=== PATIENT | female | born 1975 | race Caucasian/White ===

== ENCOUNTER 2017-04-21 10:52 | Emergency (ER) | payer BC ==
[2017-04-21 11:29] VITALS: BP 113/77
--- NOTE | 2017-04-21 13:45 | UC ---
Abdominal Pain Female HPI - HPI Summary HPI Summary: pt presents with request to have Ct of abdomen at the recommendation of her PCP. Pt states that she has known gallstones and thinks she had three gallbladder "attacks over the weekend. Pt states that she had indigestion and "heartburn Like" symptoms on friday evening, Friday morning and yesterday. Pt reports that she had one episode of vomiting bile on 04/19/17 and one episode of soft stool this morning. Pt denies fever chills, current abdominl pain, history of diverticulosis, diverticulitis, IBS, Colitis, Colon cancer or any known GI disorders. Pt is sitting comfortably in no acute distress at time of examination. Pt's vital signs are stable at time of exam. - History of Current Complaint Chief Complaint: UCAbdominalPain Stated Complaint: ABD PAIN,NAUSEA,VOMIT/DIARRHEA Time Seen by Provider: 04/21/17 12:33 Hx Obtained From: Patient Hx Last Menstrual Period: 04/03/17 ?: No Onset/Duration: Sudden Onset Timing: Intermittent Episodes Lasting: Severity Initially: Moderate Severity Currently: None Pain Intensity: 2 Pain Scale Used: 0-10 Numeric Location: Other - epigastric, that wraps around to back. Radiates: Yes Radiates to: Back Character: Burning, Colicy, Dull Aggravating Factor(s): Nothing, Food - occasional Alleviating Factor(s): Nothing Associated Signs and Symptoms: Positive: Vomiting - X1 - Risk Factors Ectopic Risk Factor: Maternal Age ^ 30 Allergies/Adverse Reactions: Allergies Allergy/AdvReac Type Severity Reaction Status Date / Time Penicillins Allergy Intermediate SORES IN Verified 04/21/17 11:29 MOUTH Clarithromycin [From Biaxin] AdvReac Intermediate VOMITINTG Verified 04/21/17 11 :29 Home Medications: Home Medications Ascorbic Acid TAB* [Vitamin C TAB*] 500 mg PO DAILY 04/21/17 [History Confirmed 04/21/17] Digestive Enzymes [Digestive Enzyme] 1 cap PO DAILY 04/21/17 [History Confirmed 04/21/17] Glucosamine-Chondroitin [Glucosamine & Chondroitin 500-400 mg] 1 cap PO DAILY [History Confirmed 04/21/17] Lactobacillus [Probiotic] 1 tab PO DAILY 04/21/17 [History Confirmed 04/21/17] [place]-3 Fatty Acids (Nf) [Fish Oil (NF)] 1,000 mg PO DAILY 04/21/17 [History Confirmed 04/21/17] PMH/Surg Hx/FS Hx/Imm Hx Previously Healthy: Yes GI/ History: Other - gallstones - Surgical History Surgical History: Yes Surgery Procedure, Year, and Place: TONSILLECTOMY, C SECTION -2, ANKLE SURGERY, BREAST REDUCTION - Family History Known Family History: Negative: None, Unknown, Cardiac Disease, Hypertension, Diabetes, Renal Disease, Respiratory Disease, Seizure Disorder, Blood Disorder, Other - Social History Occupation: Employed Full-time Lives: With Family Alcohol Use: Occasionally Substance Use Type: None Smoking Status (MU): Never Smoked Tobacco Have You Smoked in the Last Year: No Review of Systems Constitutional: Negative Skin: Negative Eyes: Negative ENT: Negative Respiratory: Negative Cardiovascular: Negative Gastrointestinal: Abdominal Pain, Vomiting - x1 on 04/21/17 Genitourinary: Negative Motor: Negative Neurovascular: Negative Musculoskeletal: Negative Neurological: Negative Psychological: Negative All Other Systems Reviewed And Are Negative: Yes Physical Exam Triage Information Reviewed: Yes Appearance: Well-Appearing Vital Signs: Initial Vital Signs Temp 99.8 F 04/21/17 11:23 Pulse 62 04/21/17 11:23 Resp 16 04/21/17 11:23 BP 113/77 04/21/17 11:23 Pulse Ox 98 04/21/17 11:23 Vital Signs Reviewed: Yes Eye Exam: Normal ENT Exam: Normal Dental Exam: Normal Neck exam: Normal Respiratory Exam: Normal Cardiovascular Exam: Normal Abdominal Exam: Other Abdomen Description: Positive: Nontender, Other: - negative for palomino's sign, Musculoskeletal Exam: Normal Neurological Exam: Normal Psychological Exam: Normal Skin Exam: Normal Abd Pain Female Course/Dx - Course Course Of Treatment: I called N to discuss with the PCP the findings on PE today. I left a message with the triage nurse that the pt was not presenting in any acute distress and that a CT would not be ordered today as the PE did not reveal any indication to proceed with this teset. additionally, I explained to the pt that she needed to follow upw tih her pCP and that the current xstandard of care is to first evaluate the gallbladder with an ultrasound, with [facility] pt being NPO prior to testing. The pt was not in any acute distress during exam and I referred her back to her pCP for follow up. Pt verbalized understanding and agreed to plan of care. - Differential Dx/Diagnosis Differential Diagnosis: Constipation, Diverticulitis, Gall Bladder Disease Provider Diagnoses: abdominal pain. needs to follow up with PCP Discharge - Discharge Plan Condition: Stable Disposition: HOME Patient Education Materials: Abdominal Pain (ED) Referrals: Jennifer Clarke PA [Primary Care Provider] - If Needed Additional Instructions: Please follow up with your PCP as needed. To fuirhter evaluate your complaiont of abdominal pain and possible gallbladder disea it is appropriate to follow up with your pCPO to have the appropriate testing ordered to render the best clinical outcome. If you experience worsening of your condition please seek care immediately at the closest healthcare facility.
== END 2017-04-21 13:33 | disposition home or self-care (01) ==
LOC: UCCORT 10:52
DX: R10.13 Epigastric pain (principal); R11.10 Vomiting, unspecified; Z32.02 Encounter for pregnancy test, result negative; K80.20 Calculus of gallbladder without cholecystitis without obstruction; Z88.1 Allergy status to other antibiotic agents; Z88.0 Allergy status to penicillin
CPT/HCPCS: 81003; 84702; 99211; G0463

== ENCOUNTER 2018-10-01 08:51 | Day surgery (SDC) | payer BC, OTHER ==
[~2018-10-01 08:51] MED LIST: Buffered Lidocaine 1% SYRIN* 1 ML/SYRINGE INTRADERM ONE; Dexamethasone IV* 4 MG/ML 1 ML (4 MG) IV SLOW PU ONE; Famotidine IV* 10 MG/ML 2 ML (20 mg) IV ONE; Lactated Ringers 1000 ML Bag* 1,000 ML IV SCH
[2018-10-01] MEDS ORDERED: Dexamethasone IV* 4 MG/ML 1 ML (4 MG) ONE (09:00)
[2018-10-01] MEDS ORDERED: Clindamycin 900 MG/D5W BAG(*) 900 MG/50 ML BAG IVPB ONE (09:00)
[2018-10-01] MEDS ORDERED: Famotidine IV* 10 MG/ML 2 ML (20 mg) ONE (09:01)
[2018-10-01] MEDS ORDERED: Midazolam* 1 MG/ML 5 ML VIAL (5 MG) ONE (09:47)
[2018-10-01] MEDS ORDERED: fentaNYL* 50 MCG/ML 2 ML VIAL (100 MCG VIAL) ONE ×2 (09:47→12:39)
[2018-10-01] MEDS ORDERED: Atracurium* 10 MG/ML 10 ML VIAL ONE (09:47)
[2018-10-01] MEDS ORDERED: Ondansetron INJ* 2 MG/ML VIAL ONE ×2 (09:48→13:32)
[2018-10-01] MEDS ORDERED: Propofol* 10 MG/ML 20 ML BTL ONE (09:48)
[2018-10-01] MEDS ORDERED: Lidocaine 2% PF * 5 ML VIAL ONE (09:48)
[2018-10-01] MEDS ORDERED: Phenylephrine INJ* 10 MG/ML 1 ML VIAL (10 MG) ONE (10:00)
[2018-10-01] MEDS ORDERED: ROPIVACAINE 5 MG/ML 30 ML BTL (0.5%) ONE (10:06)
[2018-10-01] MEDS ORDERED: Bupivacaine 0.25% EPI 200,000* 30 ML SDV ONE (11:09)
[2018-10-01] MEDS ORDERED: oxyCODONE/Acetamin 5/325 MG* TAB PO PRN (11:37)
[2018-10-01] MEDS ORDERED: Naloxone* 0.4 MG/ML 1 ML VIAL IV PRN (11:37)
[2018-10-01] MEDS ORDERED: Scopolamine 1.5 mg* PATCH TRANSDERM PRN (11:37)
[2018-10-01] MEDS ORDERED: DiMENhydriNATE IV* 50 MG/ML VIAL IV PUSH PRN (11:37)
[2018-10-01] MEDS ORDERED: fentaNYL* 50 MCG/ML 2 ML VIAL (100 MCG VIAL) IV PRN (11:37)
[2018-10-01] MEDS ORDERED: HYDROmorphone INJ1* 1 MG/ML SYRINGE IV PRN (11:37)
[2018-10-01] MEDS ORDERED: Ondansetron INJ* 2 MG/ML VIAL IV PRN (11:37)
[2018-10-01] MEDS ORDERED: Scopolamine 1.5 mg* PATCH ONE (13:44)
[2018-10-01 14:30] VITALS: BP 104/74
--- NOTE | 2018-10-01 21:00 | OP ---
DATE OF OPERATION: 10/01/18 - [facility] DATE OF : 79 SURGEON: Gilberto Parada MD. RESOLUTION EXPERT: GENO Irizarry. An respiratory therapist assistant was needed for the procedure to aid in passing the instruments on to the joint and for arthroscopic assistance as well as retraction during the open portion of the procedure. ANESTHESIOLOGIST: Dr. Mcintosh. ANESTHESIA: Peripheral nerve block plus general. PRE-OP DIAGNOSES: 1. Left shoulder bicipital tendonitis. 2. Left shoulder impingement syndrome. 3. Left shoulder acromioclavicular degenerative joint disease. 4. Left shoulder flap tear. POST-OP DIAGNOSES: 1. Left shoulder bicipital tendonitis. 2. Left shoulder impingement syndrome. 3. Left shoulder acromioclavicular degenerative joint disease. 4. Left shoulder flap tear. OPERATIVE PROCEDURES: 1. Diagnostic left shoulder arthroscopy. 2. Left shoulder arthroscopic debridement with subacromial decompression and acromioplasty. 3. Left shoulder biceps tenotomy with subpectoral biceps tenodesis. 4. Left shoulder open distal clavicle excision. 5. Left shoulder flap tear debridement. INDICATIONS: Tatianna has had a left shoulder pain for a long time. It has failed to get better despite extensive nonoperative treatment. We talked about risks and benefits. She wanted to proceed with surgery. ESTIMATED BLOOD LOSS: 20 mL. COMPLICATIONS: None. FINDINGS: See above and below. DESCRIPTION OF PROCEDURE: Tatianna was seen in the preoperative holding area. The correct site, side, and procedure were identified. The block was performed in the arm. She was brought back to the operating room. Anesthesia was induced. She was positioned in the beach chair position with the head and neck well positioned and the left shoulder free. The arm was then prescrubbed and then prepped and draped in the usual fashion. A time out was performed. I infiltrated 0.25% Marcaine with epinephrine at the portal sites and in the subacromial space. I first developed a posterior portal in a typical location. The trochar was introduced into the glenohumeral joint. I then developed an anterior portal using outside in technique with the spinal needle followed by the switching stick and then the Valverde and Nephew port was introduced. I brought in the probe and performed a diagnostic shoulder arthroscopy, what was seen was a lipstick sign on the biceps long and biceps tendon coupled with a type 2 flap tear. The biceps tenotomy was performed with a biter. The flap tear was then debrided, first with the shaver and then followed by the radiofrequency ablator. The remainder of shoulder arthroscopy revealed good glenohumeral cartilage surfaces. The rotator cuff appear to be intact as to the inferior portions of the labrum. Once I completed the flap tear debridement, I withdrew the arthroscope out of the glenohumeral joint and moved it into the subacromial space. A lateral portal was developed and the radiofrequency ablator was introduced. The subacromial bursectomy was performed. Once I outlined the margins of the inferior aspect of the acromion, I used a linnette to perform an acromioplasty to complete subacromial decompression. The acromioplasty was smoothed off with the rasp. At this point, everything was looking good, so the arthroscopic equipment was all withdrawn and we transitioned to the open portion of the procedure. I made a 2 to 3 cm incision over the AC joint. Dissection was carried down. The superior acromioclavicular ligaments were split in line with the clavicle and the distal clavicle was exposed, couple of baby Hohmanns were placed around the end of the distal clavicle. I then used a sagittal saw to excise the distal 1 cm of clavicle, this came out cleanly. I placed bone wax over the distal end of the clavicle. I irrigated out the wound. The superior AC ligaments were closed with 3-0 Vicryl. The subcutaneous tissue was reapproximated with 3-0 Vicryl and the skin was closed with 4-0 nylon. Lastly, I made a 3 to 4 cm longitudinal incision near the axillary fold over the distal aspect of the deltopectoral groove, dissection was carried down. The deltopectoral groove was identified. A couple of Hohmann retractors were placed. Bicipital groove was located. The long head of the biceps tendon was retrieved. The bed of the distal aspect of the bicipital groove was prepared and then I placed a Valverde and Nephew All-Suture suture anchor into the appropriate location. Three needles were used to whipstitch into the long head of the biceps tendon and sew this back down to the bone. Once I had sewed this tendon with both of the sutures to come with the suture anchor, we irrigated out the wound. The subcutaneous tissue was closed, was reapproximated with 3-0 Vicryl suture. Skin was closed with 3-0 nylon suture. All the portal sites were irrigated out and closed with 3-0 nylon suture. Marcaine was infiltrated around the operative areas. Dressings were applied and she was woken up and taken to recovery room in stable condition. [id number]/[facility] #: [id number] [facility] HOSPITALJerry
== END 2018-10-01 14:24 | disposition home or self-care (01) ==
LOC: OREAST 08:51
PROVIDERS: ATTEND Orthopaedic Surgery Hand Surgery
DX: M75.42 Impingement syndrome of left shoulder (principal); M75.22 Bicipital tendinitis, left shoulder; M19.012 Primary osteoarthritis, left shoulder; M24.112 Other articular cartilage disorders, left shoulder; G89.18 Other acute postprocedural pain
CPT/HCPCS: 81025; 88304; A9270-GY; C1776; J1100; J2250; J2405; J2704; J2795; J3010

== ENCOUNTER 2018-10-21 12:31 | Day surgery (SDC) | payer OTHER ==
[2018-10-21] MEDS ORDERED: Famotidine IV* 10 MG/ML 2 ML (20 mg) ONE (13:21)
[2018-10-21] MEDS ORDERED: Clindamycin 900 MG/D5W BAG(*) 900 MG/50 ML BAG IVPB ONE (13:21)
[2018-10-21] MEDS ORDERED: Dexamethasone IV* 4 MG/ML 1 ML (4 MG) ONE (13:21)
[2018-10-21] MEDS ORDERED: fentaNYL* 50 MCG/ML 2 ML VIAL (100 MCG VIAL) ONE ×2 (14:36→15:32)
[2018-10-21] MEDS ORDERED: Atracurium* 10 MG/ML 10 ML VIAL ONE (14:36)
[2018-10-21] MEDS ORDERED: Midazolam* 1 MG/ML 5 ML VIAL (5 MG) ONE (14:37)
[2018-10-21] MEDS ORDERED: Propofol* 10 MG/ML 20 ML BTL ONE (15:35)
[2018-10-21] MEDS ORDERED: Ketorolac INJ* 30 MG/ML 1 ML VIAL ONE (15:35)
[2018-10-21] MEDS ORDERED: Lidocaine 2% PF * 5 ML VIAL ONE (15:36)
[2018-10-21] MEDS ORDERED: fentaNYL* 50 MCG/ML 2 ML VIAL (100 MCG VIAL) IV PRN (15:38)
[2018-10-21] MEDS ORDERED: Naloxone* 0.4 MG/ML 1 ML VIAL IV PRN (15:38)
[2018-10-21] MEDS ORDERED: DiMENhydriNATE IV* 50 MG/ML VIAL IV PUSH PRN (15:38)
[2018-10-21] MEDS ORDERED: Morphine VIAL* 4 MG/ML VIAL (1 ml vial) IV PRN (15:38)
[2018-10-21] MEDS ORDERED: Vancomycin(*) 1,000 MG in NS 0.9% 250 ML* 250 ML IVPB ONE (16:00)
[2018-10-21] MEDS ORDERED: oxyCODONE/Acetamin 5/325 MG* TAB ONE ×2 (16:32→17:27)
[2018-10-21] MEDS: oxyCODONE/Acetamin 5/325 MG* TAB PO PRN ×2 (16:33→17:28)
[2018-10-21] MEDS ORDERED: DiMENhydriNATE IV* 50 MG/ML VIAL ONE (16:34)
[2018-10-21 18:17] VITALS: BP 120/64
--- NOTE | 2018-10-21 20:52 | OP ---
DATE OF OPERATION: 10/21/18 - [facility] DATE OF : 79 SURGEON: Gilberto Parada MD. APARTMENT GROUNDSKEEPER: GENO Ralph. ANESTHESIOLOGIST: Dr. Medina. ANESTHESIA: General. PRE-OP DIAGNOSIS: Left shoulder postoperative subpectoral biceps tendinosis wound infection. POST-OP DIAGNOSIS: Left shoulder postoperative subpectoral biceps tendinosis wound infection. OPERATIVE PROCEDURE: Irrigation and debridement of left shoulder subpectoral biceps tendinosis wound infection. INDICATIONS: We did the shoulder scope about 2-1/2 to 3 weeks ago. There is no evidence of any intraarticular infection. She developed a cellulitis around the subpectoral biceps tendinosis wound. I initially treated it with some Bactrim and it has improved, but then when I saw her in the office, she had a little bit of purulent drainage from the inferior aspect of the wound, so I told her I wanted to wash out the wound and that should help to make it better quicker and I think that is the right course of treatment. ESTIMATED BLOOD LOSS: 10 mL. COMPLICATIONS: None. FINDINGS: See above and below. DESCRIPTION OF PROCEDURE: Tatianna was seen in the preoperative holding area. The correct side, site, and procedure were identified. We came back to the operating room where she was positioned in the lazy beach chair position on the operating room bed and the arm was prepped and draped with a Betadine prep and then a time-out was performed. I used the Metzenbaum scissors to spread and open up her subpectoral biceps tendinosis wound. There was some purulence. We took aerobic and anaerobic cultures. We then irrigated out the wound. It did not look like it tracked deep, but I went ahead and just bluntly spread down with my finger just to make sure we irrigated out the wound to its entire depth. We put 6 L of saline through the wound and at that point everything was looking nice and clean. There was no subcutaneous tracking. There was no additional purulence that was not addressed. I went ahead and placed 3 simple interrupted 3-0 nylon sutures to loosely approximate the wound. The wound was dressed with Xeroform, 4x4s and foam tape. She was then woken up and taken to the recovery room in stable condition. [id number]/[facility] #: [id number] [facility]
== END 2018-10-21 18:19 | disposition home or self-care (01) ==
LOC: OR 12:31
PROVIDERS: ATTEND Orthopaedic Surgery Hand Surgery
DX: T81.49XA Infection following a procedure, other surgical site, initial encounter (principal); S46.112D Strain of muscle, fascia and tendon of long head of biceps, left arm, subsequent encounter; M19.012 Primary osteoarthritis, left shoulder; M75.42 Impingement syndrome of left shoulder; E06.3 Autoimmune thyroiditis; Z88.0 Allergy status to penicillin; Z88.8 Allergy status to other drugs, medicaments and biological substances; X58.XXXD Exposure to other specified factors, subsequent encounter
CPT/HCPCS: 81025; 87070; 87073; 87077; 87186; 87205; A9270-GY; J1100; J1240; J1885; J2250; J2704; J3010; J3370

== ENCOUNTER 2019-01-18 09:42 | Inpatient (IN) | payer OTHER ==
[2019-01-18] MEDS ORDERED: Clindamycin 900 MG IVPREMIX(* 900 MG/50 ML SDV IV ONE (09:55)
[2019-01-18] MEDS ORDERED: Dexamethasone IV* 4 MG/ML 1 ML (4 MG) ONE (09:55)
[2019-01-18] MEDS ORDERED: Famotidine IV* 10 MG/ML 2 ML (20 mg) ONE (09:55)
[2019-01-18] MEDS ORDERED: Naloxone* 0.4 MG/ML 1 ML VIAL IV PRN ×2 (11:42→11:43)
[2019-01-18] MEDS ORDERED: DiMENhydriNATE IV* 50 MG/ML VIAL IV PUSH PRN (11:43)
[2019-01-18] MEDS ORDERED: Midazolam* 1 MG/ML 2 ML VIAL (2 MG) ONE (11:56)
[2019-01-18] MEDS ORDERED: fentaNYL* 50 MCG/ML 2 ML VIAL (100 MCG VIAL) ONE ×3 (11:56→14:08)
[2019-01-18] MEDS ORDERED: Propofol* 10 MG/ML 20 ML BTL ONE (11:57)
[2019-01-18] MEDS ORDERED: Lidocaine 2% PF * 5 ML VIAL ONE (11:57)
[2019-01-18] MEDS ORDERED: Lidocain 1% EPI 1:100,000 * 30 ML MDV ONE (12:07)
[2019-01-18] MEDS ORDERED: Bupivacaine 0.25% SDV PF* 10 ML VIAL INJ ONE (12:07)
[2019-01-18] MEDS ORDERED: Ketorolac INJ* 30 MG/ML 1 ML VIAL ONE (12:47)
[2019-01-18] MEDS ORDERED: Ondansetron INJ* 2 MG/ML VIAL ONE (12:47)
[2019-01-18] MEDS ORDERED: Phenylephrine 40 MCG/ML SYRINGE ONE (12:47)
[2019-01-18] MEDS ORDERED: EPHEDrine (Pressors)* 50 MG/ML VIAL ONE (12:52)
[2019-01-18] MEDS ORDERED: HYDROmorphone INJ1* 1 MG/ML SYRINGE IV PRN (14:06)
[2019-01-18] MEDS ORDERED: Ondansetron INJ* 2 MG/ML VIAL IV PRN (14:07)
[2019-01-18] MEDS ORDERED: Morphine 4 MG/ML VIAL (1 ml) 4 MG/ML VIAL IV PRN (14:07)
[2019-01-18] MEDS ORDERED: Magnesium Hydroxide LIQ* 30 ML UDC PO PRN (14:07)
[2019-01-18] MEDS ORDERED: traMADol TAB* 50 MG PO PRN (14:07)
[2019-01-18] MEDS ORDERED: diPHENhydraMINE PO* 25 MG PO PRN (14:07)
[2019-01-18] MEDS ORDERED: diPHENhydraMINE IV* 50 MG/ML 1 ml VIAL (BENADRYL) IV PRN (14:07)
[2019-01-18] MEDS: fentaNYL* 50 MCG/ML 2 ML VIAL (100 MCG VIAL) IV PRN ×2 (14:09→14:25)
[2019-01-18] MEDS ORDERED: HYDROmorphone INJ1* 1 MG/ML SYRINGE ONE (14:30)
[2019-01-18] MEDS ORDERED: ceFAZolin VIAL(*) 2 GM in NS 0.9% 100 ML* 100 ML IVPB SCH (15:00)
[2019-01-18] MEDS: Lactated Ringers 1000 ML Bag* 1,000 ML IV SCH (15:29)
[2019-01-18] MEDS: Acetaminophen TAB* 325 MG PO SCH (16:25)
[2019-01-18] MEDS: Docusate CAP* 100 MG PO SCH (19:45)
[2019-01-18] MEDS: ceFAZolin* 2 GM* Q8H (Duplex) IVPB SCH (19:46)
[2019-01-18] MEDS: Magnesium Hydroxide LIQ* 30 ML UDC PO SCH (19:47)
--- NOTE | 2019-01-18 23:25 | OP ---
DATE OF OPERATION: 01/18/19 - ROOM #[id number] DATE OF : 79 SURGEON: Gilberto Parada MD CLAIMS INVESTIGATOR: GENO Irizarry. An recreational assistant was needed for the procedure to aid in positioning of the arm and retraction. ANESTHESIOLOGIST: Dr. Lunsford. ANESTHESIA: General. PRE-OP DIAGNOSIS: Left shoulder postoperative wound infection with likely infected suture anchor. POST-OP DIAGNOSIS: Left shoulder postoperative wound infection with infected suture anchor. OPERATIVE PROCEDURE: 1. Left shoulder wound irrigation and debridement with excision of sinus tract down to bone. 2. Removal of infected left shoulder Valverde and Nephew suture anchor. INDICATIONS: Tatianna has the aforementioned infection. Two weeks out from surgery, she had an infection which was treated with the wound washout and antibiotics and got completely better. Two months later, the infection came back. She now presents for I and D and removal of the suture anchors. I think it is likely infected. ESTIMATED BLOOD LOSS: 25 mL. COMPLICATIONS: None. FINDINGS: See above and below. DESCRIPTION OF PROCEDURE: Tatianna was seen in the preoperative holding area. The correct side, site, and procedure were identified. We came back to the operating room and the arm was prepped and draped in usual fashion. Time-out was performed. She was positioned in the lazy beach chair position. I began by ellipsing out the prior wound including an area of granulation tissue that had come out from the distal aspect of the wound where I had done her I and D. I immediately encountered with the sinus tract, this was traced deeply all the way down to bone. Once I got down to bone, I excised the entirety of the tract. I placed a couple of Hohmann retractors. The tract took us all the way down to the Valverde and Nephew Q-FIX suture anchor which there was a just a little bit of pus coming out around the anchor. I went ahead and pulled on the anchor and it came out in one piece. I released the suture on the anchor just pulled out from tissue that was in. I went ahead and cleaned up all of that tissue and made sure that there was absolutely no retained suture or any foreign material. Once everything was nice and clean, we irrigated out the wound copiously. I went ahead and placed the Hemovac drain deeply and brought this out laterally staying away from the axillary nerve. The wound was closed loosely with 3-0 nylon sutures. The wound was dressed. Hemovac was all set up and she was woken up and taken to the recovery room in stable condition. [id number]/[facility] #: [id number] MACKENZIE
[2019-01-19] MEDS: Acetaminophen TAB* 325 MG PO SCH ×4 (00:23→23:47)
[2019-01-19] MEDS: ceFAZolin* 2 GM* Q8H (Duplex) IVPB SCH ×3 (03:39→19:48)
[2019-01-19] MEDS: Lactated Ringers 1000 ML Bag* 1,000 ML IV SCH (06:00)
[2019-01-19] MEDS: Aspirin TAB* 325 MG PO SCH (07:39)
[2019-01-19] MEDS: Docusate CAP* 100 MG PO SCH ×2 (07:39→20:02)
[2019-01-19] MEDS: Magnesium Hydroxide LIQ* 30 ML UDC PO SCH ×2 (07:42→20:02)
[2019-01-19 14:44] LABS: ABS Basophils 0.1 10^3/ul (0-0.2); ABS Eosinophils 0.2 10^3/ul (0-0.6); ABS Neutrophils 5.3 10^3/ul (1.5-7.7); Eosinophil % 1.5 %; Hematocrit 35 % (35-47); Hemoglobin 12.3 g/dL (12.0-16.0); Lymphocyte % 37.9 %; Mean Corpuscular HGB Conc 35 g/dL (31-36); Mean Corpuscular Hemoglobin 33 pg (27-31); Mean Corpuscular Volume 94 fL (80-97); Nucleated Red Blood Cells % 0.1; Platelet Count 258 10^3/uL (150-450); Red Blood Count 3.77 10^6 /uL (3.70-4.87); Red Cell Distribution Width 13 % (10.5-15); White Blood Count 10.4 10^3/uL (3.5-10.8)
[2019-01-19 15:07] LABS: Calcium 8.6 mg/dL (8.6-10.3); Potassium 3.9 mmol/L (3.5-5.0)
[2019-01-19 15:12] LABS: BUN/Creatinine Ratio 15.9 (8-20); EGFR African American 68.4 (>60); EGFR Non-African American 56.5 (>60)
--- NOTE | 2019-01-19 16:17 | PN ---
Progress Note - Progress Note Date of Service: 01/19/19 SOAP: Subjective: [Pt was seen today sitting up in bed. She states that she is doing well. She states pain is well controlled. She denies any numbness, tingling, fevers, chills or night sweats. ] Objective: [General: Pt is alert and oriented x 3. Appropriate mood, affect, dress and hygiene. MSK, JEFRYE: Dressing is c/d/i. Minimal drainage in the wound vac. Wound vac pulled today. Able to move elbow and wrist without pain. Sensation intact to light touch. 2+ DP pulse. ] Vital Signs Temp 98.6 F 01/19/19 11:33 Pulse 61 01/19/19 11:33 Resp 16 01/19/19 11:33 BP 93/53 01/19/19 11:33 Pulse Ox 94 01/19/19 11:33 Intake & Output 01/18/19 01/19/19 01/19/19 18:59 06:59 18:59 Intake Total 1425 1735 1330 Output Total 368 010 9088 Balance 1225 1035 -370 Weight 155 lb Intake: IV Fluids 1350 1045 CLINDAMYCIN 900MG/ 50ml 50 LR 1300 990 cefazolin 55 Oral 75 690 1330 Output: Urine 961 190 2154 Other: # Bowel Movements 0 Assessment: [S/P Left shoulder removal of infected suture anchor. ] Plan: [- Continue with Ancef for current abx. - ID to consult, will await for their opinion - Drain removed today]
[2019-01-19 16:45] LABS: C Reactive Protein 2.9 mg/L (<8.01)
--- NOTE | 2019-01-19 18:01 | CONS ---
CONSULTATION REPORT: DATE OF CONSULTATION: 01/19/19 REQUESTING PHYSICIAN: Dr. Parada. CONSULTING SERVICE: Infectious Disease. REASON FOR CONSULTATION: Recurrence of left arm infection. IMPRESSION: 1. Left proximal arm abscess due to methicillin-sensitive Staph aureus with sinus tract down to suture anchor in the proximal humerus, which was removed and has been treated with incision and debridement and Ancef. 2. PENICILLIN allergy which caused mouth ulcers, but she is tolerating cephalosporins. 3. Left shoulder arthroscopy, subacromial decompression, biceps tenotomy, distal clavicle excision on 10/01/18, complicated by staph superficial infection and then irrigation and debridement left shoulder subpectoral biceps tendinosis wound on 10/21/18. RECOMMENDATIONS: Agree with Ancef 2 g every 8 hours here given very small focus of infection as well as her underlying normal immune status that prolonged course of oral antibiotics after initial IV therapy will sterilize the area. We will plan on Keflex 500 mg by mouth 3 times a day for a month after she is discharged. We will follow her arm and C-reactive protein from time to time. HISTORY OF PRESENT ILLNESS: This is a 43-year-old woman who had left biceps tendon repair in September. She developed some soft tissue infection, treated with Keflex initially with improvement and had recurrence, though she had incision and debridement in October. She had recurrence of her symptoms of left arm redness, pain, and swelling around [facility]. She was treated with clindamycin and Keflex with some improvement. After finishing it, the symptoms recurred again. She was put on Bactrim last week and then Dr. Parada admitted her to the hospital yesterday for washout, which she tolerated well. He found a small sinus tract down to the suture anchor and the bone, that was removed and washed out. Cultures have come back growing staph aureus, which by PCR is methicillin sensitive. She has not had other staph infections over the years. She has not had much in the way of fevers or chills recently and otherwise has been healthy. PAST MEDICAL HISTORY: Left shoulder bicipital tendonitis and shoulder flap tear , treated with arthroscopic debridement, decompression, acromioplasty, and biceps tenotomy. Distal clavicle excision in 10/01/18, complicated by staphylococcal infection, treated with incision and debridement on 10/21/18. MEDICATIONS: 1. Tylenol. 2. Aspirin. 3. Cefazolin 2 g every 8 hours. 4. Docusate. 5. Lactated Ringer's. 6. Magnesium hydroxide. 7. Zofran. 8. Tramadol as needed. ALLERGIES: CLARITHROMYCIN caused vomiting. DOXYCYCLINE caused headache. PENICILLIN caused mouth ulcers. FAMILY HISTORY: No recurrent infections. SOCIAL HISTORY: She lives at home with her . She is a nonsmoker. REVIEW OF SYSTEMS: All negative except as noted above to a 14-point review of systems. PHYSICAL EXAM: Vital Signs: Temperature 37, heart rate 60, respiratory rate 16 , blood pressure 103/60, oxygen saturation 97% on room air. In general, she is awake, not in distress. Neurologic: She is oriented x3. Follows commands. HEENT: There is no conjunctival hemorrhage. Oropharynx without lesions. Neck : Neck is supple without mass. Heart has regular rate and rhythm without murmurs, rubs, or gallops. Lungs are clear to auscultation bilaterally. Abdomen: Soft, nontender, and nondistended. There are bowel sounds present. Skin: There is no rash or splinter hemorrhage. Musculoskeletal: There is no spine tenderness to palpation. Left proximal arm bandage. There is no proximal or distal erythema, tenderness or crepitus. LABORATORY DATA: White blood cell count 10, hemoglobin 12, platelets 258. Creatinine 1. Please see impression and recommendations outlined above. Thanks for asking me to see Ms. Lopez in consultation. [id number]/[facility] #: [id number] MTDD
[2019-01-20] MEDS: ceFAZolin* 2 GM* Q8H (Duplex) IVPB SCH ×2 (03:50→12:18)
[2019-01-20] MEDS: Magnesium Hydroxide LIQ* 30 ML UDC PO SCH (07:50)
--- NOTE | 2019-01-20 08:21 | PN ---
Progress Note - Progress Note Date of Service: 01/20/19 SOAP: Subjective: [] Objective: [] Assessment: []L proximal arm abscess with sinus tract down to suture anchor SP removal of suture anchor and I&D Plan: []Ancef while in house then transition to keflex 500 mg TID x 1 month with monitoring of surgical site and CRP
[2019-01-20] MEDS: Acetaminophen TAB* 325 MG PO SCH (09:05)
[2019-01-20] MEDS: Docusate CAP* 100 MG PO SCH (09:06)
[2019-01-20] MEDS: Aspirin TAB* 325 MG PO SCH (09:06)
--- NOTE | 2019-01-20 10:02 | PN ---
Progress Note - Progress Note Date of Service: 01/20/19 SOAP: Subjective: CC: Recurrence of left arm infection HPI: Ms. Lopez is a 43 yo female with PMH significant for left shoulder bicipital tendonitis and shoulder flap tear s/p arthroscopic debridement, decompression, acromioplasty, and biscept tenotomy; and distal clavicle excision on 10/01/18, complicated by a staphylococcal infection s/p I+D 10/21/18. Denies fever, chills , shortness of breath, chest discomfort, N/V/D. Reports that pain is well controlled. Objective: Vital Signs - 8 hr 01/20/19 01/20/19 01/20/19 03:37 03:42 07:15 Temperature 98.6 F 98.3 F Pulse Rate 62 58 Respiratory 16 14 Rate Blood Pressure 85/52 98/50 106/53 (mmHg) O2 Sat by Pulse 97 96 Oximetry Physical Exam: General: NAD, sitting up in bed Neurological: Alert and Oriented x 4 HEENT: No thrush, moist MM Cardiovascular: Heart rate regular Respiratory: Lung sounds clear Abdominal: Bowel sounds present; ABD soft, non tender and non distended Skin: Left upper arm dressing clean, dry and intact Laboratory Results - last 24 hr 01/19/19 01/19/19 14:34 14:34 WBC 10.4 RBC 3.77 Hgb 12.3 Hct 35 MCV 94 MCH 33 H MCHC 35 RDW 13 Plt Count 258 MPV 7.0 L Neut % (Auto) 50.9 Lymph % (Auto) 37.9 [place] % (Auto) 9.2 Eos % (Auto) 1.5 Baso % (Auto) 0.5 Absolute Neuts (auto) 5.3 Absolute Lymphs (auto) 4.0 Absolute Monos (auto) 1.0 H Absolute Eos (auto) 0.2 Absolute Basos (auto) 0.1 Absolute Nucleated RBC 0.0 Nucleated RBC % 0.1 Sodium 140 Potassium 3.9 Chloride 108 Carbon Dioxide 27 Anion Gap 5 BUN 17 Creatinine 1.07 H Est GFR ( Amer) 68.4 Est GFR (Non-Af Amer) 56.5 BUN/Creatinine Ratio 15.9 Glucose 96 Calcium 8.6 C-Reactive Protein 2.90 Microbiology 01/18/19 13:40 Wound Gram Stain - Final Wound Tissue Culture - Preliminary Staphylococcus Aureus Anaerobic Culture - Preliminary Skin and Soft Tissue MRSA/MSSA (PCR - Final Mrsa Negative S.aureus Positive 01/18/19 13:20 Anaerobic Culture - Preliminary Wound No Growth Day 2 Gram Stain - Final Wound Culture - Preliminary No Growth Day 2 Assessment: 1. Left proximal arm abscess d/t MSSA with sinus tract down to suture anchor in the proximal humerus. S/P removal of suture anchor and I+D on 01/18/[address] Parada. 2. PCN allergy. Caused mouth ulcers, tolerated cephalosporins. Plan: Continue Ancef 2 g IV every 8 hours while in the hospital. Once ready for discharge, change to cephalexin 500 mg TID for 4 weeks. Can follow up with ID outpatient in 2-3 weeks after discharge.
[2019-01-20 11:38] VITALS: BP 117/62
--- NOTE | 2019-01-20 12:18 | DS ---
Orthopedic Discharge Summary - Discharge Summary Date of Admission:01/18/19 Date of Discharge: 01/20/19 Date of Surgery: 01/18/19 Attending Orthopedic Provider: Dr Parada Pre-operative Diagnosis: Left shoulder infected suture anchor Operative Procedure: left shoulder I&D, removal of infected suture anchor Condition of Patient: stable History: ABRAHAM WILKINSON is a 43 year old F with left shoulder pain and evidence of infection, she elected to undergo surgical intervention with an I&D, removal of suture anchor. Hospital Course: ABRAHAM was admitted to [facility] on 01/18/19. Patient underwent a [I&D, removal of suture anchor from her left shoulder] without complication followed by a brief recovery in PACU and transfer to the Short Stay Surgical Unit in stable condition. Our infectious disease service, physical therapy and occupational therapy also participated in this patients care. Post-op day 1: patient was alert and in no acute distress. Dressing was clean, dry and intact. Her drain was removed without complication. Dr Parada and infectious disease also saw the patient. POD 2 she was well appearing, dressing was changed and incision CDI without erythema, surrounding tissue was soft and nontender. She was able to flex and extend digits, wrist and elbow without pain. She has started gentle shoulder ROM. Sensation is intact to light touch distally, radial pulse 2+ and capillary refill less than two seconds distally. She was medically and orthopedically stable for discharge home. Home Medications Medication Instructions Recorded Confirmed Type Lactobacillus Acidophilus 1 tab PO QAM 04/21/17 01/18/19 History [Probiotic] [place]-3 Fatty Acids (Nf) [Fish Oil 2 tab PO QAM 04/21/17 01/18/19 History (NF)] Glucosam/Chondr/Collagn/Hyalur 2 cap PO QAM 09/24/18 01/18/19 History [Glucosamine & Chondroitin Cap] Magnesium Glycinate [Mag Glycinate] 1 tab PO BEDTIME 09/24/18 01/18/19 History Cholecalciferol CAP/TAB(NF) 4,000 units PO QAM 10/20/18 01/18/19 History [Vitamin D3 CAP/TAB (NF)] Ibuprofen 800 mg PO Q8HR PRN 10/20/18 01/18/19 History Vitamin B Complex CAP* [B Complex 2 cap PO QAM 10/20/18 01/18/19 History CAP*] Acetaminophen TAB* [Tylenol TAB*] 975 mg PO Q8H tab 01/20/19 Rx Cephalexin CAP* [Keflex CAP*] 500 mg PO TID #90 cap 01/20/19 Rx Docusate CAP* [Colace Cap*] 100 mg PO BID PRN #90 cap 01/20/19 Rx Tylenol for pain control. Weekly WBC and CRP - attend outpatient lab May shower post op day 3. Allow water to run over incision, pat dry. Do not submerge. Dressing changes daily, gauze and tape kelfex 500 mg po every 8 hours for 1 month per infectious disease. Follow up in 2 weeks with Infectious Disease, Dr Ceja Call orthopedic office with any fever, chills, redness or drainage Go to the emergency room with chest pain or shortness of breath Please follow up with Dr Parada 10 days post op Orthopedic office: [phone]
== END 2019-01-20 15:08 | disposition home or self-care (01) | DRG 711 ==
LOC: OR 09:42 → SSU 14:07
PROVIDERS: ADMIT Orthopaedic Surgery Hand Surgery; ATTEND Orthopaedic Surgery Hand Surgery
PROC: 0R9K0ZZ Drainage of Left Shoulder Joint, Open Approach (ICD-10-PCS; 2019-01-18)
PROC: 0RPK0JZ Removal of Synthetic Substitute from Left Shoulder Joint, Open Approach (ICD-10-PCS; principal; 2019-01-18 11:45)
DX: T81.41XA Infection following a procedure, superficial incisional surgical site, initial encounter (principal); D68.51 Activated protein C resistance; Y92.9 Unspecified place or not applicable; B95.61 Methicillin susceptible Staphylococcus aureus infection as the cause of diseases classified elsewhere; E06.3 Autoimmune thyroiditis; Z86.718 Personal history of other venous thrombosis and embolism; Z87.01 Personal history of pneumonia (recurrent); Z90.49 Acquired absence of other specified parts of digestive tract; Z88.0 Allergy status to penicillin; Z88.8 Allergy status to other drugs, medicaments and biological substances; Y79.3 Surgical instruments, materials and orthopedic devices (including sutures) associated with adverse incidents; Z87.442 Personal history of urinary calculi
CPT/HCPCS: 36415; 80048; 81025; 85025; 86140; 87070; 87073; 87077; 87186; 87205; 87640; 87641; A9270-GY; J0690; J1100; J1170; J1885; J2250; J2405; J2704; J3010; J3490